=== PATIENT | female | born 1995 | race American Indian/Alaskan Native ===

== ENCOUNTER 2016-06-22 20:50 | Emergency (ER) | payer SELFPAY ==
[2016-06-22 22:20] VITALS: BP 131/87
== END 2016-06-23 04:35 | disposition left against medical advice (07) ==
LOC: ED 20:50
DX: J11.1 Influenza due to unidentified influenza virus with other respiratory manifestations (principal); Z53.21 Procedure and treatment not carried out due to patient leaving prior to being seen by health care provider
CPT/HCPCS: 87116; 87430